=== PATIENT | male | born 1950 | race Caucasian/White ===

== ENCOUNTER 2020-07-24 08:13 | Day surgery (SDC) | payer OTHER, SELFPAY ==
[2020-07-19 11:12] VITALS: BMI 30.1
[2020-07-24 09:15] VITALS: BP 129/81; PULSE 78; RESP 16; TEMP 36.1; O2SAT 97
[2020-07-24] MEDS: Lactated Ringers 1,000 ML 50 ML IVCONT (09:17)
--- NOTE | 2020-07-24 09:40 | P.CONAN_ITS ---
[facility] Past Medical History Medical History Arthritis Back pain Cancer Elevated cholesterol Lab test negative for COVID-19 virus Sleep apnea Surgical History Surgical History H/O colonoscopy H/O radical prostatectomy History of partial knee replacement Hx of rotator cuff surgery Social History Social History Smoking Status: Never smoker Use of substances other than those prescribed or required for medical reasons: No Have you been hit, kicked, punched, or otherwise hurt by someone within the past year? If so, by whom?: No Advance Directives Information Provided: No Recently lost weight without trying: No Meds Allergies Allergy/AdvReac Type Severity Reaction Status Date / Time No Known Allergies Allergy Verified 07/19/20 11:17 Home Medications Medication Instructions Recorded Confirmed Type ascorbic acid (vitamin C) [Vitamin 500 mg PO DAILY 07/19/20 07/19/20 History C] cholecalciferol (vitamin D3) 20 mcg PO DAILY 07/19/20 07/19/20 History [Vitamin D3] rosuvastatin 5 mg PO DAILY 07/19/20 07/19/20 History Exam Exam Date and Time: July 24, 2020 0940 Height,Weight and Vital Signs: Height 5 ft 10 in Weight 95.254 kg Last Vital Signs Temp 96.9 F 07/24/20 09:15 Pulse 78 07/24/20 09:15 Resp 16 07/24/20 09:15 BP 129/81 07/24/20 09:15 Pulse Ox 97 07/24/20 09:15 Airway Mallampati Class: II TM Dist: >3cm Neck ROM: Full Loose/Missing/Broken Teeth: No Heart: rrr+[id number] Lungs: cta b/l Assessment and Plan Assessment Anesthesia Assessment: Anesthesia Plan Discussed and Chart Reviewed Final Anesthetic Review NPO: Yes ASA Class: II Final Preanesthetic Review: No Changes in Pt Med Stat, Meds/Allgs Chart Reviewed, Consent Obtained/Reviewed and Anes Risks/Benef Reviewed Patient Risk: Low Procedure Risk: Low Assessment/Block/Sedation in SS: Assess/Block/Sedation-SS Anesthetic Plan Anesthetic Plan: MAC: Disposition: Standard PACU
[2020-07-24 10:41] VITALS: BP 104/64; PULSE 83; RESP 12; TEMP 36.3; O2SAT 96
--- NOTE | 2020-07-24 10:42 | P.CONAN_ITS ---
[facility] Past Medical History Medical History Arthritis Back pain Cancer Elevated cholesterol Lab test negative for COVID-19 virus Sleep apnea Surgical History Surgical History H/O colonoscopy H/O radical prostatectomy History of partial knee replacement Hx of rotator cuff surgery Social History Social History Smoking Status: Never smoker Use of substances other than those prescribed or required for medical reasons: No Have you been hit, kicked, punched, or otherwise hurt by someone within the past year? If so, by whom?: No Advance Directives Information Provided: No Recently lost weight without trying: No Meds Allergies Allergy/AdvReac Type Severity Reaction Status Date / Time No Known Allergies Allergy Verified 07/19/20 11:17 Home Medications Medication Instructions Recorded Confirmed Type ascorbic acid (vitamin C) [Vitamin 500 mg PO DAILY 07/19/20 07/19/20 History C] cholecalciferol (vitamin D3) 20 mcg PO DAILY 07/19/20 07/19/20 History [Vitamin D3] rosuvastatin 5 mg PO DAILY 07/19/20 07/19/20 History Exam Exam Date and Time: July 24, 2020 1042 Height,Weight and Vital Signs: Height 5 ft 10 in Weight 95.254 kg Last Vital Signs Temp 96.9 F 07/24/20 09:15 Pulse 78 07/24/20 09:15 Resp 16 07/24/20 09:15 BP 129/81 07/24/20 09:15 Pulse Ox 97 07/24/20 09:15
--- NOTE | 2020-07-24 10:42 | PM.OP ---
Brief Operative Note Date of Service: 07/24/20 Pre-op diagnosis: Screening Post-op diagnosis: other (Diverticulosis) Procedure: Colonoscopy to cecum and TI Surgeon: Leon Lake Anesthesia: MAC Estimated blood loss (mL): 0 Pathology: none sent Condition: stable Disposition: PACU
[2020-07-24 10:56] VITALS: BP 106/63; PULSE 76; RESP 16; TEMP 36.3; O2SAT 95
--- NOTE | 2020-07-24 11:02 | OP_ITS ---
SURGEON: Leon Lake MD INDICATIONS: The patient presents for followup of colorectal cancer screening. Full consent has been obtained from him for this, including risks of bleeding and perforation. PREOPERATIVE DIAGNOSIS: Colorectal cancer screening. POSTOPERATIVE DIAGNOSIS: PROCEDURE PERFORMED: Colonoscopy to cecum and terminal ileum. ESTIMATED BLOOD LOSS: COMPLICATIONS: ANESTHESIA: Monitored anesthesia care. ASSISTANTS: SPECIMENS: POSTOPERATIVE DIAGNOSES: Colorectal cancer screening, sigmoid diverticulosis, and internal hemorrhoids. DESCRIPTION OF PROCEDURE: The patient was placed in the left lateral decubitus position. The digital rectal exam revealed no abnormalities. The Olympus video pediatric colonoscope was entered into the rectum and advanced easily to the cecum. Once in the cecum, I did identify normal-appearing cecal pouch with appendiceal orifice and a normal-appearing ileocecal valve. The terminal ileum was cannulated and appeared normal. The scope was withdrawn back in the colon. The entire cecum and ileocecal valve appeared normal. The scope was slowly withdrawn assessing all mucosal surfaces carefully. Preparation was excellent. I did not visualize any sign of polyps, colitis, nor angiodysplasia. There was a mild amount of sigmoid diverticulosis. In the rectum, scope was retroflexed visualizing minimal internal hemorrhoids, but no other pathology. The rectal mucosa appeared normal. The scope was straightened out and withdrawn from the patient. He tolerated the procedure well and was returned to the recovery area in stable condition. IMPRESSION: 1. Sigmoid diverticulosis. 2. Minimal internal hemorrhoids. PLAN: Given the patient's negative exam, negative family history, his age, and the fact that his last colonoscopy in 2009 only had a small tubular adenoma, I do not think he will need any further screening colonoscopies at this point. He will otherwise see me on a p.r.n. basis. MD ELEN Hammond/SARIAH / [phone]
--- NOTE | 2020-07-24 12:29 | HO.POSTANES ---
Post Anesthesia Evaluation Post Anesthesia Evaluation Vital Signs: Vital Signs Temp Pulse Resp BP Pulse Ox 07/24/20 10:56 97.3 F 76 16 106/63 95 07/24/20 10:41 97.3 F 83 12 104/64 96 07/24/20 09:15 96.9 F 78 16 129/81 97 Anesthesia: Monitored Mental Status: Awake Pain Control: Satisfactory Nausea/Vomiting: None Hydration: Adequate Anesthesia-Related Issues: No Anes. Related Issues
== END 2020-07-24 11:20 | disposition home or self-care (01) ==
PROVIDERS: Visit Provider Internal Medicine
PROC: 0DJD8ZZ Inspection of Lower Intestinal Tract, Via Natural or Artificial Opening Endoscopic (ICD-10-PCS; CPT 45378; principal; 2020-07-24 09:40)
DX: Z12.11 Encounter for screening for malignant neoplasm of colon (principal); Z86.010 Personal history of colon polyps; K57.30 Diverticulosis of large intestine without perforation or abscess without bleeding; K64.8 Other hemorrhoids; G47.33 Obstructive sleep apnea (adult) (pediatric); E78.00 Pure hypercholesterolemia, unspecified; Z79.899 Other long term (current) drug therapy; Z85.46 Personal history of malignant neoplasm of prostate; Z92.3 Personal history of irradiation; Z96.651 Presence of right artificial knee joint
CPT/HCPCS: 45378

== ENCOUNTER 2023-05-30 12:57 | Outpatient (REF) | payer MEDICARE, OTHER, SELFPAY ==
--- NOTE | ~2023-05-30 | XR_ITS ---
EXAMINATION: XR LUMBOSACRAL SPINE WITH OBLIQUES CLINICAL INFORMATION: Sacrococcygeal disorders COMPARISON: None available. TECHNIQUE: 4 views of the lumbar spine FINDINGS: 5 nonrib-bearing lumbar-type vertebral bodies. No acute visible fracture or dislocation. No overt dynamic instability on flexion-extension views. Mild multi level degenerative changes with osteophyte formation and facet arthropathy. Vertebral bodies and disc spaces are otherwise maintained. Posterior elements are intact. Paraspinal soft tissues are unremarkable. XR/XR lumbar spine 4V min IMPRESSION: 1. No acute visible fracture or dislocation. 2. Mild multi level degenerative changes.
== END 2023-05-30 12:58 | disposition home or self-care (01) ==
LOC: HO.HOSX 12:57
PROVIDERS: Visit Provider Physician Assistant
DX: M53.3 Sacrococcygeal disorders, not elsewhere classified (principal); M46.1 Sacroiliitis, not elsewhere classified; G89.29 Other chronic pain
CPT/HCPCS: 72110

== ENCOUNTER 2023-05-30 12:57 | Outpatient (AMB) | payer MEDICARE, OTHER, SELFPAY ==
--- NOTE | 2023-05-30 13:12 | A.SPINEOV_ITS ---
Intake Intake Visit Reasons: sacroiliitis Intake Note: Mr. Zaldivar is here today c/o SI joint pain. MRI done @ [place]/brought disc. 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 He is a 72-year-old gentleman who is very active and otherwise healthy, play softball competitively who has had 20 years of pain along the left SI joint region. He tells me he remembers when it started. He was working many years ago and had pulled something very heavy and felt a pop or pulling sensation in his low back. Ever since then he has had the pain almost every day. It steadily got worse over the years. He had block done at [facility] many many years ago, probably more than 10 years ago any gave him complete relief for a whole year. He more recently had a lateral branch block which may be helped him for an hour so. He was not clear if it was done cortisone or lidocaine etc.. He has no radicular pain. He has no centralized back pain. He is here today for surgical evaluation as this gentleman's pain has been getting steadily worse over the years and now it is affecting his ability to do simple things like walker do housework. He has no pain when he is sitting down or laying down at night. PMH: Very healthy, had a right knee surgery and shoulder surgery Social hx: Does not smoke Medications: Takes Crestor and Aleve to help with the pain Allergies: None Physical exam: Positive finger Fredy test, I was unable to reproduce the pain with ROXANNE testing or compression testing in the SI joint. Motor examination gait are normal. Imaging review: Lumbar MRI done at [place] looks excellent for a gentleman of his age with no signs of instability, spondylolisthesis, no fit significant facet arthropathy. No canal stenosis or nerve compression I can see. Impression: 72-year-old gentleman presents for evaluation of left-sided low back pain for 20+ years which started after he pulled something very heavy. He has no radicular pain. Many of the features of his symptoms suggest SI joint origin, but he has minimal physical exam findings to corroborate this. He has had a lot of success once or twice with an injection done at your office over 10 years ago, but he could not remember exactly what injection it was or where it was anatomically. He did more recently have a lateral branch block and it did not have much of an effect. I would like to find out where the original injection was done so I can have a better idea of where this was localized to. I will have my medical assistant secretary is contact our office for this information. Secondly, I will have him do standing flexion-extension studies to rule out occult instability in the lumbar spine. I will call the patient once I have the records in the standing x-rays to confirm a plan. Thank you for allowing us to care for your patient. The total time spent with this visit with this patient was 45 minutes reviewing history, physical exam, lumbar imaging review, and implementation of treatment plan or further diagnostic testing Jerry Wesley MD,PhD [facility] Orders: Orders XR lumbar spine 4V min Today G89.29 - Other chronic pain, M53.3 - Sacrococcygeal disorders, not elsewhere classified Coding Level of Care Code New Pt Level 4 (76678) Diagnoses Chronic SI joint pain M53.3; G89.29
== END 2023-05-30 13:36 | disposition home or self-care (01) ==
PROVIDERS: Referring Provider Student in an Organized Health Care Education/Training Program; Visit Provider Physician Assistant
DX: M53.3 Sacrococcygeal disorders, not elsewhere classified (principal); G89.29 Other chronic pain
CPT/HCPCS: 99204

== ENCOUNTER 2023-07-22 14:14 | Outpatient (AMB) | payer MEDICARE, OTHER, SELFPAY ==
--- NOTE | 2023-07-22 14:39 | A.SPINEOV_ITS ---
Intake Intake Visit Reasons: lower back pain Intake Note: Mr. Zaldivar is here today c/o low back pain. Drain Tiler Required: No Allergies No Known Allergies Allergy (Verified 07/19/20 11:17) Assessment & Plan Assessment & Plan (1) Chronic SI joint pain: Code(s): M53.3 - Sacrococcygeal disorders, not elsewhere classified; G89.29 - Other chronic pain Plan Mr Zaldivar is back in follow-up today to review his records from [facility] [facility] and his most recent left SI joint injection. Unfortunately did not get any relief from the SI joint block. He has been dealing with this left-sided low back pain for years. From what I can tell and from reviewing the records with him in my office today, he agrees that the injection done locally at the [facility] trigger-point is the only thing that has given him relief. This suggest that the problem is more of a tendinopathy than something deeper into the SI joint. It is unlikely that SI joint fusion would help him. We have excluded is lumbar spine is the source of his pain. I recommended he follow-up with [facility] again to get another trigger point injection. Total amount of time spent in this visit was 20 minutes in discussion of symptoms, results from injections and subsequent plan of care Jerry Wesley MD,PhD [facility] Coding Level of Care Code Est Pt Level 3 (91274) Diagnoses Chronic SI joint pain M53.3; G89.29
== END 2023-07-22 15:37 | disposition home or self-care (01) ==
PROVIDERS: Visit Provider Physician Assistant
DX: M53.3 Sacrococcygeal disorders, not elsewhere classified (principal); G89.29 Other chronic pain
CPT/HCPCS: 99213

== ENCOUNTER → 2023-07-22 14:14 | Outpatient (BNVA) | payer MEDICARE, OTHER, SELFPAY | PROVIDERS: Visit Provider Physician Assistant | DX: M53.3 Sacrococcygeal disorders, not elsewhere classified (principal); G89.29 Other chronic pain | CPT/HCPCS: 99212 ==

== ENCOUNTER 2025-04-29 11:50 | Outpatient (AMB) | payer MEDICARE, OTHER, SELFPAY ==
--- OUTSIDE RECORDS SUMMARY | 2025-04-29 11:52 | XMS_ITS ---
Author Name [facility] Organization Unknown Encounters Encounter Type Encounter Reason Primary Diagnosis Location Date Ambulatory [facility] [place] 07/16/2023
--- OUTSIDE RECORDS SUMMARY | 2025-04-29 11:52 | XMS_ITS | Patient Health Record ---
Author Organization [facility] Address [address] [place] [id number] Care Team Providers Care Sr. Merchandise Planner Name Role Phone OLE MACDONALD Primary Care Provider Leon Jean [phone] Reason For Referral No Information Medications Medication SIG (Take, Route, Fr equency, Duration) Notes Start Date End Date Status Vitamin C Active Rosuvastatin Calcium Active Immunizations Vaccine Route Administration Date Status Comme nts Influenza Unknown 06/09/2020 Refused Social History Tobacco Use: Social History Observation Description Date Details (start date - stop date) Never Smoker NA - NA Tobacco Use/Smoking Question Answer Notes Patient is a nonsmoker Alcohol Screen Question Answer Notes Did you have a drink contain ing alcohol in the past year? Yes How often did you have a dri nk containing alcohol in the past year? Monthly or less (1 point) How many drinks did you have on a typical day when you were drinking in the past year? 1 or 2 drinks (0 point) How often did you have 6 or more drinks on one occasion in the past year? Never (0 point) Points 1 Interpretation Negative Section Notes: Nonsmoker; Ocassional beer Problems Problem Type SNOMED Code ICD Code Onset Dates Problem Status W/U Status Risk Notes Problem 112833926 Encounter for screening for malignant neoplasm of colon (Z12.11) Active confirmed Problem 357760230 History of adenomatous polyp of colon (Z86.010) Active confirmed Problem 295846396764388 Preprocedural examination (Z01.818) Active confirmed Plan Of Treatment Future Test Test Name Order Date COLONOSCOPY 06/09/2020 Insurance Providers Payer Name Payer Address Payer Phone Subscriber Number Group Number Insured Name Patient Relationship to Insured Coverage Start Date Coverage End Date [place] [employer] [address] [place] [address] [id number] ALEJANDRA HERNANDEZ Self - patient is the insured Medical (General) History Medical History History ICD Code Hyperlipidemia Colonoscopy 03/2010 with removal of a sma ll tubular adenoma Denies SC,DM,CVA,Lung disease,renal dise ase Prostate cancer--surgery and XRT--may be starting hormones for a rising PSA Surgical History Surgery Date(Month/Year) Rotator cuff tear repair - right side 20 16 Partial right knee replacement 2017 Prostatectomy for cancer 2018
--- OUTSIDE RECORDS SUMMARY | 2025-04-29 11:53 | XMS_ITS | Clinical Summary ---
Author Organization [facility] Address [address] [place] [id number] Phone Care Team Providers Care Aerial Lineman Name Role Phone Self-Referred, Patient Unavailable Unavailab Antonio Mcbride MD Unavailable [phone] Libby Payne MD Unavailable [phone] Tyrone Cortez MD, PhD Unavailable [phone] Sebastien Melendez MD Primary Care Provider + Medications rosuvastatin (CRESTOR) 5 MG tablet Take 5 mg by mouth daily. Active Active Problems Problem Noted Date Diagnosed Date Prostate cancer 10/27/2019 Social History Tobacco Use Types Packs/Day Years Used Date Smoking Tobacco: Never Assessed Education Answer Date Recorded Are you interested in more education? Not on rashida e 01/03/2023 Are you concerned about learning? Not on file 01/03/2023 No 01/03/2023 No 01/03/2023 Digital Access Answer Date Recorded No 02/01/2023 No 02/01/2023 Reliable internet access at home? Not on file 02/01/2023 Device with a working camera? Not on file Sex and Gender Information Value Date Recorded Sex Assigned at Not on file Legal Sex Male 4:36 PM EDT Gender Identity Not on file Sexual Orientation Not on file Last Filed Vital Signs Vital Sign Reading Time Taken Comments Blood Pressure 145/81 10/28/2019 1:25 PM EST Pulse 83 10/28/2019 1:25 PM EST Temperature 36.6 C (97.9 F) 10/28/2019 1:25 PM EST Respiratory Rate 16 10/28/2019 1:25 PM EST Oxygen Saturation 95% 10/28/2019 1:25 PM EST Inhaled Oxygen Concentration - - Weight 94.4 kg (208 lb 1.8 oz) 10/28/2019 1:25 P M EST [facility] Height 180.6 cm (5' 11.1 ) 10/28/2019 1:25 PM ES T [facility] Body Mass Index 28.94 10/28/2019 1:25 PM EST Plan of Treatment Health Maintenance Due Date Last Done Comments LIPID PANEL 1949 DEPRESSION SCREENING 1961 SMOKING Hx and SMOKELESS TOB ACCO SCREENING 1962 HEPATITIS C SCREENING 1967 ZOSTER VACCINES (1 of 2) 1968 COLOGUARD 1994 COLONOSCOPY 1994 COLORECTAL CANCER SCREENING 1994 FIT TEST 1994 FOBT 1994 SIGMOIDOSCOPY 1994 VIRTUAL COLONOSCOPY 1994 PNEUMOCOCCAL VACCINES (50+ y ears) (2 of 2 - PPSV23) 08/02/2021 06/07/2021 COVID-19 VACCINE (2 - 2023-2 5 season) 2024 06/08/2021 RSV VACCINE (1 - 1-dose 75+ series) 2024 Adult Td,Tdap Booster 11/24/2025 11/25/2015 HEPATITIS A VACCINES Aged Out No long er eligible based on patient's age to complete this topic HIB VACCINES Aged Out No longer eligi ble based on patient's age to complete this topic MENINGOCOCCAL VACCINES (ACWY) Aged Out No longer eligible based on patient's age to complete this topic MENINGOCOCCAL VACCINES (B) Aged Out N o longer eligible based on patient's age to complete this topic Medical Devices Not on file Insurance MEDICARE PART A & B [employer] MEDICARE SUPPLEMENT MEDICARE PART A & B [employer] MED[employer]ARE SUPPLEMENT MEDICARE PART A & B [facility] MEDICARE SUPPLEMENT MEDICARE PART A & B [employer] MEDICARE SUPPLEMENT MEDICARE PART A & B [employer] MEDICARE SUPPLEMENT MEDICARE PART A & B [facility] MEDICARE SUPPLEMENT MEDICARE PART A & B [facility] EXTENSION MEDICARE SUPPLEMENT MEDICARE PART A & B Member Subscriber Plan / Payer (Ef fective 2017-Present) Name:Sukhi Zaldivar Member ID:[id number] Relation to Subscriber:Self Name:Sukhi Zaldivar Subscriber ID:[id number] Payer ID:[id number] Group ID:Not on file Type:Medicare Address: [employer] [address] [place] [id number] [place] [address] EXTENSION MEDICARE SUPPLEMENT MEDICARE PART A & B [facility] EXTENSION MEDICARE SUPPLEMENT Care Teams Aerial Lineman Relationship Specialty Start Date End Date Sebastien Melendez MD [address] [place] [address] PCP - General Internal Medicine 10/28/19 Self-Referred, Patient 12/11/17 Antonio Flowers MD [facility] [place] [address] [email or web address] Urology 09/30/19 Libby Payne MD [address] [place] [address] [email or web address] Medical Oncology 10/07/19 Tyrone Cortez MD, PhD [address] [facility] [place] [address] [email or web address] Radiation Oncology 10/07/19 Additional Source Comments The information contained in this document represents components of the legal health record. It is not the complete legal health record.[facility]
--- OUTSIDE RECORDS SUMMARY | 2025-04-29 11:53 | XMS_ITS | Clinical Summary ---
Author Organization [address] Address [address] [place] [address] Phone Care Team Providers Care Jacket Changer Name Role Phone Omari Navarrete MD Primary Care Provider Encounters Date Type Department Care Team Description 02/14/2025 Lab Requisition [facility] [address] [place] [address] Andrez Champion PA Malignant neoplasm of prostate (CMS/HCC V24, CMS/HCC V28) from Last 3 Months Social History Tobacco Use Types Packs/Day Years Used Date Smoking Tobacco: Never Assessed Sex and Gender Information Value Date Recorded Sex Assigned at Not on file Legal Sex Male 9:44 PM EST Gender Identity Not on file Sexual Orientation Not on file Plan of Treatment Health Maintenance Due Date Last Done Comments DTaP,Tdap,and Td Vaccines (1 - Tdap) 1968 Pneumococcal Vaccine: 50+ Ye ars (1 of 1 - PCV) 1999 Zoster Vaccines (1 of 2) 1999 Abdominal Aortic Aneurysm (A AA) Screen 08/10/2022 Cholesterol Screening (Lipid Panel) 08/10/2022 Colorectal Cancer Screening: Colonoscopy 08/10/2022 Falls Risk Assessment 08/10/2022 Hepatitis C Screening 08/10/2022 Medicare Annual Wellness Visit 08/10/2022 Social Influencers of Health Screening 08/10/2022 COVID-19 Vaccine ( - 2023-2 5 season) 2024 Depression Screening 09/08/2024 RSV Immunization Adult Patie nts (1 - 1-dose 75+ series) 2024 Influenza Vaccine (#1) 2025 HIB Vaccines Aged Out No longer eligi ble based on patient's age to complete this topic HPV Vaccines Aged Out No longer eligi ble based on patient's age to complete this topic Hepatitis A Vaccines Aged Out No long er eligible based on patient's age to complete this topic Hepatitis B Vaccines Aged Out No long er eligible based on patient's age to complete this topic IPV Vaccines Aged Out No longer eligi ble based on patient's age to complete this topic MMR Vaccines Aged Out No longer eligi ble based on patient's age to complete this topic Meningococcal ACWY Vaccine Aged Out N o longer eligible based on patient's age to complete this topic Meningococcal B Vaccine Aged Out No l onger eligible based on patient's age to complete this topic RSV Immunization Patients Un leanna 20 months Aged Out No longer eligible b ased on patient's age to complete this topic Varicella Vaccines Aged Out No longer eligible based on patient's age to complete this topic Procedures Procedure Name Priority Date/Time Associated Diagnosis Comments PROSTATE SPECIFIC ANTIGEN DIAGNOSTIC Routine 02/14/2025 8:47 AM EDT Malignant neoplasm of prostate ([facility] V24, [facility] V28) from Last 3 Months Results * Prostate specific antigen diagnostic (02/14/2025 8:47 AM EDT) PSA <0.06 0.00 - 4.00 ng/mL LAB CHEMISTRY METHOD 02/14/2025 2:29 PM EDT [facility] Blood Venous blood specimen / Unknown 02/14/2025 8:47 AM EDT 02/14/2025 1:28 PM EDT Narrative [facility] - 02/14/2025 2:29 PM EDT The Siemens Advia Centaur Chemiluminescent Immunoassay is used. Results obtained with different assay methods or kits cannot be used interchangeably. Results cannot be interpreted as absolute evidence of the presence or absence of malignant disease. Andrez BUTCHER LAB BLOOD ORDERABLES Final Resul t [facility] [address] [place] [address], [place] [phone] from Last 3 Months Insurance MEDICARE [facility] ATTN: FEE [place] [phone] Advance Directives Documents on File Type Date Recorded Patient Confectionery Maker Expl anation Health Care Decision (hx) 09/24/2017 AD ARRIAGA DIRECTIVE Health Care Decision (hx) 09/24/2017 AD ARRIAGA DIRECTIVE Health Care Decision (hx) 09/24/2017 AD ARRIAGA DIRECTIVE Health Care Decision (hx) 09/24/2017 AD ARRIAGA DIRECTIVE Health Care Decision (hx) 09/24/2017 AD ARRIAGA DIRECTIVE Health Care Decision (hx) 09/24/2017 AD ARRIAGA DIRECTIVE Care Teams Jacket Changer Relationship Specialty Start Date End Date Omari Navarrete MD [address] [place] [phone] PCP - General Internal Medicine 02/14/25
--- NOTE | 2025-04-29 11:59 | MHC.OFFVIS ---
Vital Signs 04/29/25 12:01 Height 6 ft Weight 208 lb BMI 28.2 BP 134/72 Blood Pressure Location Lt brachial Position Sitting Respiration 16 Pulse 70 Pulse Source Pulse Oximeter Pulse Oximetry (%) 97 Oxygen Delivery Method Room Air Intake Visit Reasons: INTRACEPT CONSULT Local Company Truck Driver Required: No Accompanied by: Daughter Allergies No Known Allergies Allergy (Verified 04/29/25 12:02) Medication List - Last Reconciled 04/29/25 by Mirian Stack LPN ascorbic acid (vitamin C) (Vitamin C) 500 mg PO DAILY cholecalciferol (vitamin D3) (Vitamin D3) 20 mcg PO DAILY ferrous sulfate 325 mg PO DAILY multivitamin 1 tab PO DAILY omeprazole 20 mg PO DAILY rosuvastatin 5 mg PO DAILY vibegron (Gemtesa) 75 mg PO DAILY HPI HPI INTRACEPT CONSULT: Details: History of Present Illness The patient is a 74-year-old male presenting with chronic left-sided low back pain. The pain has been persistent for 20+ years and is primarily located in the left lower back, with increased intensity upon movement, especially bending forward. Previous interventions included sacroiliac joint injections and trigger point injections, with only the latter providing some relief. The patient was scheduled for an Intracept procedure six weeks ago, which was canceled due to concerns about his cardiac condition, specifically a potentially blocked coronary artery. He has not experienced a heart attack, chest pain, or required stents, but a new primary care physician expressed concern about the blockage during routine tests. The patient is active, playing softball regularly, and prefers to manage pain without medication, using ibuprofen sparingly at night for sleep. Pain Description - Onset: Chronic, persisting for years - Location: Left-sided lower back, centralizing towards the middle - Quality: Increases with movement, particularly bending forward - Exacerbating factors: Movement, especially bending forward - Relieving factors: Minimal relief from trigger point injections - Interference: Affects daily activities, including sports like softball Physical Exam - Musculoskeletal: Pain exacerbated by movement, particularly bending forward - Appears afebrile. - Alert and oriented. - Mood and affect appropriate. - Follows and participates in conversation appropriately. - Respiratory effort is unlabored. - Able to transition from sit to stand unassisted. Pain Management - Affect: Pain impacts daily activities but patient maintains an active lifestyle - Analgesia: Uses ibuprofen sparingly at night for sleep - Adverse Effects: None reported from current pain management - Activities of Daily Living: Continues to play softball, indicating high activity level - Aberrant Drug Related Behaviors: None reported, patient avoids regular pain medication use PFSH Medical History (Updated 04/12/25 @ 11:44 by Mirian Stack LPN) Vertebrogenic low back pain Cancer Back pain Arthritis Lab test negative for COVID-19 virus Sleep apnea Elevated cholesterol Surgical History History of partial knee replacement Hx of rotator cuff surgery H/O radical prostatectomy H/O colonoscopy Physical Exam Vital Signs: Last Vital Signs Pulse 70 04/29/25 12:01 Resp 16 04/29/25 12:01 BP 134/72 04/29/25 12:01 Pulse Ox 97 04/29/25 12:01 Oxygen Delivery Method Room Air 04/29/25 12:01 BMI result Body Mass Index 28.2 Assessment & Plan Assessment & Plan (1) Vertebrogenic low back pain: Code(s): M54.51 - Vertebrogenic low back pain Category: Medical Plan Plan - Plan to obtain cardiac records from the patient's primary care provider to clarify cardiac concerns before proceeding with the Intracept procedure. - Consider scheduling the Intracept procedure at the hospital once cardiac clearance is obtained. - Continue current pain management with ibuprofen as needed, emphasizing non-pharmacological approaches. Patient was informed and verbally consented to the use of an ambient scribe for clinic note documentation during this visit. Discussion Notes I discussed with the patient the potential benefits and limitations of the Intracept procedure, noting that it may not be the ideal solution given the current evidence of vertebral endplate degeneration. We agreed to proceed with cautious optimism, understanding that the procedure is being considered due to a lack of other effective options. The patient was informed about the need to obtain cardiac clearance before scheduling the procedure, and he expressed understanding and agreement with the plan. Patient Instructions - Continue using ibuprofen at night as needed for pain relief. - Maintain current activity level, including playing softball, as tolerated. - Await further instructions regarding the scheduling of the Intracept procedure after cardiac clearance is obtained. Coding Level of Care Code New Pt Level 4 (27238) Diagnoses Vertebrogenic low back pain M54.51
[2025-04-29 12:01] VITALS: BP 134/72; PULSE 70; RESP 16; O2SAT 97; BMI 28.2
== END 2025-04-29 12:35 | disposition home or self-care (01) ==
LOC: HO.PMC 11:51
PROVIDERS: PCP Internal Medicine; Visit Provider Internal Medicine
DX: M54.51 Vertebrogenic low back pain (principal)
CPT/HCPCS: 99204

== ENCOUNTER → 2025-04-29 11:50 | Outpatient (BNVA) | payer MEDICARE, OTHER, SELFPAY | PROVIDERS: PCP Internal Medicine; Visit Provider Internal Medicine | DX: M54.51 Vertebrogenic low back pain (principal) | CPT/HCPCS: 99202 ==

== ENCOUNTER 2025-07-27 10:04 | Day surgery (SDC) | payer MEDICARE, OTHER, SELFPAY ==
--- OUTSIDE RECORDS SUMMARY | 2025-07-04 12:48 | XMS_ITS | Encounter Summary ---
Author Organization [facility] Address [address] [place] [address] Care Team Providers Care Councilor Name Role Phone Omari Navarrete MD Primary Care Provider Encounter Details Date Type Department Care Team (Late st Contact Info) Description 02/14/[address] [facility] - Main Lab [address] [place] [id number] Andrez Champion PA [address] [id number] Malignant neoplasm of prostate (CMS/HCC V24, CMS/HCC V28) Social History Tobacco Use Types Packs/Day Years Used Date Smoking Tobacco: Never Assessed Sex and Gender Information Value Date Recorded Sex Assigned at Not on file Legal Sex Male 9:44 PM EST Gender Identity Not on file Sexual Orientation Not on file documented as of this encounter Plan of Treatment Not on file documented as of this encounter Procedures Procedure Name Priority Date/Time Associated Diagnosis Comments PROSTATE SPECIFIC ANTIGEN DIAGNOSTIC Routine 02/14/2025 8:47 AM EDT Malignant neoplasm of prostate (CMS/HCC V24, CMS/HCC V28) documented in this encounter Results * Prostate specific antigen diagnostic (02/14/2025 8:47 AM EDT) PSA <0.06 0.00 - 4.00 ng/mL LAB CHEMISTRY METHOD 02/14/2025 2:29 PM EDT [facility] Blood Venous blood specimen / Unknown 02/14/2025 8:47 AM EDT 02/14/2025 1:28 PM EDT Narrative [facility] ([facility] - 02/14/2025 2:29 PM EDT The Siemens Advia Centaur Chemiluminescent Immunoassay is used. Results obtained with different assay methods or kits cannot be used interchangeably. Results cannot be interpreted as absolute evidence of the presence or absence of malignant disease. us Andrez BUTCHER LAB BLOOD ORDERABLES Final Resul t [facility] [address] [place] [address], documented in this encounter Visit Diagnoses Diagnosis Malignant neoplasm of prostate (CMS/HCC V24, CMS/HCC V28) Malignant neoplasm of prostate documented in this encounter Care Teams Councilor Relationship Specialty Start Date End Date Omari Navarrete MD [address] [place] [phone] PCP - General Internal Medicine 02/14/25 documented as of this encounter
--- OUTSIDE RECORDS SUMMARY | 2025-07-04 12:48 | XMS_ITS | Clinical Summary ---
Author Organization [facility] Address [address] [place] [address] Phone Care Team Providers Care Calcine Furnace Loader Name Role Phone Self-Referred, Patient Unavailable Unavailab Antonio Mcbride MD Unavailable [phone] Libby Payne MD Unavailable [phone] Tyrone Cortez MD, PhD Unavailable [phone] Sebastien Melendez MD Primary Care Provider + [...] DEPRESSION SCREENING 1961 SMOKING Hx and SMOKELESS TOBACCO SCREENING 1962 HEPATITIS C SCREENING 1967 ZOSTER VACCINES (1 of 2) 1968 COLOGUARD 1994 COLONOSCOPY 1994 COLORECTAL CANCER SCREENING 1994 FIT TEST 1994 FOBT 1994 SIGMOIDOSCOPY 1994 VIRTUAL COLONOSCOPY 1994 PNEUMOCOCCAL VACCINES (50+ years) (2 of 2 - PPSV23) 08/02/2021 06/07/2021 RSV VACCINE (1 - 1-dose 75+ series) 2024 INFLUENZA VACCINE (#1) 2025 , 07/31/2020 COVID-19 VACCINE (2 - 2024-2 6 season) 2025 06/08/2021 Adult Td,Tdap Booster 11/24/2025 11/25/2015 HEPATITIS A [...] file Insurance MEDICARE PART A & B [email or web address] EXTENSION MEDICARE SUPPLEMENT MEDICARE PART A & B [employer] [facility] EXTENSION MEDICARE SUPPLEMENT MEDICARE PART A & B [facility] MEDICARE SUPPLEMENT MEDICARE PART A & B [id number] [place] [address] EXTENSION MEDICARE SUPPLEMENT MEDICARE PART A & B [employer] [facility] EXTENSION MEDICARE SUPPLEMENT MEDICARE PART A & B Member Subscriber Plan / Payer ( fective 2017-Present) Name:Mckenna Zaldivarick Member ID:[id number] Relation to Subscriber:Self Name:MpwallySukhi Subscriber ID:[id number] Payer ID:[id number] Group ID:Not on file Type:Medicare Address: [facility] [employer] [facility] [address] [place] [phone] [facility] MEDICARE SUPPLEMENT MEDICARE PART A & B EXT[employer]ION MEDICARE SUPPLEMENT MEDICARE PART A & B EXTENSION MEDICARE SUPPLEMENT MEDICARE PART A & B [facility] EXTENSION MEDICARE SUPPLEMENT Care Teams Calcine Furnace Loader Relationship Specialty Start Date End Date Sebastien Melendez MD [facility] [place] [address] PCP - General Internal Medicine 10/28/19 Self-Referred, Patient 12/11/17 Antonio Flowers MD [facility], [address] [place] [address] [email or web address] Urology 09/30/19 Libby Payne MD [address] [place] [address] [email or web address] Medical Oncology 10/07/19 Tyrone Cortez MD, PhD [address] [place] [address] [email or web address] Radiation Oncology 10/07/19 Additional Source Comments The information contained in this document represents components of the legal health record. It is not the complete legal health record.[facility]
--- OUTSIDE RECORDS SUMMARY | 2025-07-04 12:48 | XMS_ITS | Patient Health Record ---
Author Organization [facility] Address [address] [place] [phone] Care Team Providers Care Car Supervisor Name Role Phone OLE MACDONALD Primary Care Provider Leon Jean [phone] Reason For Referral No Information Medications Medication [...] Problem Status W/U Status Risk Notes Problem Screening for malignant neoplasm of colon (833255028) Encounter for screening for malignant neoplasm of colon (Z12.11) Active confirmed Problem History of adenomatous polyp of colon (914870608) History of adenomatous polyp of colon (Z86.010) Active confirmed Problem Preprocedural examination (087945010939206) Preprocedural examination (Z01.818) Active confirmed Plan Of Treatment Future Test Test Name Order Date COLONOSCOPY 06/09/2020 Insurance Providers Payer Name Payer Address Payer Phone Subscriber Number Group Number Insured Name Patient Relationship to Insured Coverage Start Date Coverage End Date [facility] [employer] [address] [place] [address] [id number] ALEJANDRA HERNANDEZ Self - patient is the insured Medical (General) History Medical History History ICD Code Hyperlipidemia Colonoscopy 03/2010 with removal of a sma ll tubular adenoma Denies DE,DM,CVA,Lung disease,renal dise ase Prostate cancer--surgery and XRT--may be starting hormones for a rising PSA Surgical History Surgery Date(Month/Year) Rotator cuff tear repair - right side 20 16 Partial right knee replacement 2016 Prostatectomy for cancer 2018
--- OUTSIDE RECORDS SUMMARY | 2025-07-04 12:48 | XMS_ITS | Clinical Summary ---
Author Organization [address] Address [address] [place] [phone] Phone Care Team Providers Care School Child Care Attendant Name Role Phone Omari Navarrete MD Primary Care Provider Social History Tobacco Use Types Packs/Day Years Used Date Smoking Tobacco: Never Assessed Sex and Gender Information Value Date Recorded Sex Assigned at Not on file Legal Sex Male 9:44 PM EST Gender Identity Not on file Sexual Orientation Not on file Plan of Treatment Health Maintenance Due Date Last Done Comments Colorectal Cancer Screening: Colonoscopy 1950 Abdominal Aortic Aneurysm (AAA) Screen 08/10/2022 Cholesterol Screening (Lipid Panel) 08/10/2022 Falls Risk Assessment 08/10/2022 Hepatitis C Screening 08/10/2022 Medicare Annual Wellness Visit 08/10/2022 Social Influencers of Health Screening 08/10/2022 Depression Screening 09/08/2024 COVID-19 Vaccine ( season) 2025 06/12/2024, 06/12/2023, 12/30/2021, Additional history exists Influenza Vaccine (#1) 2025 , 06/12/2023, 06/10/2022, Additional history exists DTaP,Tdap,and Td Vaccines (2 - Td or Tdap) 11/24/2025 11/25/2015 Zoster Vaccines Completed 03/09/2022, 12/30/2021 RSV Immunization Adult Patients Completed 06/12/2023 Pneumococcal Vaccine: 50+ Years Completed 07/24/2023, 06/07/2021 HIB Vaccines Aged Out No longer eligi [...] to complete this topic RSV Immunization Patients Under 20 months Aged Out No longer eligible based on patient's age to complete this topic Varicella Vaccines Aged Out No longer eligible based on patient's age to complete this topic Insurance MEDICARE [facility] ATTN: [place] [address] Advance Directives Documents on File Type Date Recorded Patient Scleroscope Tester Expl anation Health Care Decision (hx) 09/24/2017 AD ARRIAGA DIRECTIVE Health Care Decision (hx) 09/24/2017 AD ARRIAGA DIRECTIVE Health Care Decision (hx) 09/24/2017 AD ARRIAGA DIRECTIVE Health Care Decision (hx) 09/24/2017 AD ARRIAGA DIRECTIVE Health Care Decision (hx) 09/24/2017 AD ARRIAGA DIRECTIVE Health Care Decision (hx) 09/24/2017 AD ARRIAGA DIRECTIVE Care Teams School Child Care Attendant Relationship Specialty Start Date End Date Omari Navarrete MD [address] [place] [phone] PCP - General Internal Medicine 02/14/25
--- OUTSIDE RECORDS SUMMARY | 2025-07-04 12:49 | XMS_ITS | Encounter Summary ---
Author Organization [facility] Address [address] [place] [address] Care Team Providers Care Survey Field Technician Name Role Phone Omari Navarrete MD Primary Care Provider Encounter Details Date Type Department Care Team (Late st Contact Info) Description 07/12/2024 Lab Requisition [facility] - Main Lab [address] [place] [address] Antonio Flowers MD [address] [phone] Malignant neoplasm of prostate (CMS/HCC V24, CMS/HCC [...] Diagnosis Comments PROSTATE SPECIFIC ANTIGEN DIAGNOSTIC Routine 07/12/2024 8:33 AM EST Malignant neoplasm of prostate (CMS/HCC) documented in this encounter Results * Prostate specific antigen diagnostic (07/12/2024 8:33 AM EST) PSA 0.52 0.00 - 4.00 ng/mL LAB CHEMISTRY METHOD 07/12/2024 11:45 AM EST [facility] Blood Venous blood specimen / Unknown 07/12/2024 8:33 AM EST 07/12/2024 10:37 AM EST Narrative [facility] ([facility] - 07/12/2024 11:45 AM EST The Siemens Advia Centaur Chemiluminescent Immunoassay is used. Results obtained with different assay methods or kits cannot be used interchangeably. Results cannot be interpreted as absolute evidence of the presence or absence of malignant disease. us Antonio Flowers MD LAB BLOOD ORDERABLES Final Resu lt [facility] [address] [place] [address], documented in this encounter Visit Diagnoses Diagnosis Malignant neoplasm of prostate (CMS/HCC V24, CMS/HCC V28) Malignant neoplasm of prostate documented in this encounter Care Teams Survey Field Technician Relationship Specialty Start Date End Date Omari Navarrete MD [address] [place] [phone] PCP - General Internal Medicine 02/14/25 documented as of this encounter
--- NOTE | 2025-07-05 12:30 | HO.ANESPROP2 ---
Documented by User: Kaylen Valerio NP 07/13/25 14:33 HPI - Anesthesia Eval Consult details Narrative: 74yo M for L4,L5 and S1 Basivertebral Nerve Ablation (Intracept RFA), 07/27/25 Telephone eval with patient 07/05/25: No recent illness No CP/SOB with gym 6 days weekly - does ~ 10 min cardio warm up followed by strength training Recent referral by PCP to cardiology for TAA and +coronary artery calcium score - Echo ok 2023 and Nuc stress nml 2022. Appt 09/2025 Cannot tolerate CPAP PMFSH Active Problems Active Problems: All Active Problems Vertebrogenic low back pain (Acute) Chronic SI joint pain (Acute) Past Medical History Medical History GERD (gastroesophageal reflux disease) Vertebrogenic low back pain Cancer Back pain Arthritis Lab test negative for COVID-19 virus Sleep apnea Elevated cholesterol Surgical History Surgical History (Updated 07/27/25 @ 10:54 by Kia Waddell RN) History of partial knee replacement Hx of rotator cuff surgery H/O radical prostatectomy H/O colonoscopy (07/24/20) Social History Social History Household Members: Spouse Housing: House Are you a primary career development counselor to a significant other at home: No Do you presently have visiting nurse or other home services: No Patient Tobacco Use Status: Never used Tobacco e-Cigarette/Vaping Use: Never Used Use of substances other than those prescribed or required for medical reasons: No Have you been hit, kicked, punched, or otherwise hurt by someone within the past year? If so, by whom?: No Are you DNR?: No Advance Directives: Yes (will bring dos) Advance Directives Information Provided: Yes Advance Directives on File: No Advance Directives Date on File: 07/27/25 Meds Allergies Allergy/AdvReac Type Severity Reaction Status Date / Time No Known Allergies Allergy Verified 07/11/25 12:28 Home Medications ?Medication ?Instructions ?Recorded ?Confirmed ?Last Taken ?Type ascorbic acid (vitamin C) 500 mg 500 mg PO DAILY 07/19/20 07/11/25 Unknown History tablet (Vitamin C) cholecalciferol (vitamin D3) 10 20 mcg PO DAILY 07/19/20 07/11/25 Unknown History mcg (400 unit) capsule (Vitamin D3) rosuvastatin 5 mg tablet 5 mg PO DAILY 07/19/20 07/11/25 Unknown History ferrous sulfate 325 mg (65 mg 325 mg PO 3XW 04/29/25 07/11/25 Unknown History iron) tablet,delayed release multivitamin 1 tab PO DAILY 04/29/25 07/11/25 07/06/25 History omeprazole 20 mg capsule,delayed 20 mg PO DAILY 04/29/25 07/11/25 07/27/25 History release vibegron 75 mg tablet (Gemtesa) 75 mg PO DAILY 04/29/25 07/11/25 Unknown History Exam Narrative Narrative: EKG 2022 NSR ECHO 2023 Summary The right ventricle is normal in size and function. The left ventricular size is at the upper limit of normal. Left ventricular wall thickness is normal. The LV systolic function is low normal . The left ventricular ejection fraction is 50-55 %. There are no regional wall motion abnormalities. Grade I, mild diastolic dysfunction with impaired LV relaxation, which may be normal for the patient's age. An accurate pulmonary artery pressure could not be obtained. Nuc Stress 2022 Summary No evidence of stress induced ischemia or prior myocardial infarction. Normal left ventricular size and function with no regional wall motion abnormalities. Assessment and Plan Assessment Anesthesia Assessment: Chart Reviewed Documented by User: Claudia Holt MD 07/27/25 14:44 PMFSH Past Medical History Medical History GERD (gastroesophageal reflux disease) Vertebrogenic low back pain Cancer Back pain Arthritis Lab test negative for COVID-19 virus Sleep apnea Elevated cholesterol Family History Family history of problems with anesthesia: No Surgical History Surgical History (Updated 07/27/25 @ 10:54 by Kia Waddell RN) History of partial knee replacement Hx of rotator cuff surgery H/O radical prostatectomy H/O colonoscopy (07/24/20) History of Problems with Anesthesia: No Social History Social History Household Members: Spouse Housing: House Are you a primary career development counselor to a significant other at home: No Do you presently have visiting nurse or other home services: No Patient Tobacco Use Status: Never used Tobacco e-Cigarette/Vaping Use: Never Used Use of substances other than those prescribed or required for medical reasons: No Have you been hit, kicked, punched, or otherwise hurt by someone within the past year? If so, by whom?: No Are you DNR?: No Advance Directives: Yes (will bring dos) Advance Directives Information Provided: Yes Advance Directives on File: No Advance Directives Date on File: 07/27/25 Meds Allergies Allergy/AdvReac Type Severity Reaction Status Date / Time No Known Allergies Allergy Verified 07/11/25 12:28 Home Medications ?Medication ?Instructions ?Recorded ?Confirmed ?Last Taken ?Type ascorbic acid (vitamin C) 500 mg 500 mg PO DAILY 07/19/20 07/11/25 Unknown History tablet (Vitamin C) cholecalciferol (vitamin D3) 10 20 mcg PO DAILY 07/19/20 07/11/25 Unknown History mcg (400 unit) capsule (Vitamin D3) rosuvastatin 5 mg tablet 5 mg PO DAILY 07/19/20 07/11/25 Unknown History ferrous sulfate 325 mg (65 mg 325 mg PO 3XW 04/29/25 07/11/25 Unknown History iron) tablet,delayed release multivitamin 1 tab PO DAILY 04/29/25 07/11/25 07/06/25 History omeprazole 20 mg capsule,delayed 20 mg PO DAILY 04/29/25 07/11/25 07/27/25 History release vibegron 75 mg tablet (Gemtesa) 75 mg PO DAILY 04/29/25 07/11/25 Unknown History Exam Airway Mallampati Class: II TM Dist: >3cm Neck ROM: Full Heart: rrr Lungs: cta Assessment and Plan Assessment Anesthesia Assessment: Anesthesia Plan Discussed Final Anesthetic Review Family History of Problems with Anesthesia: No History of Problems with Anesthesia: No NPO: Yes ASA Class: II Final Preanesthetic Review: No Changes in Pt Med Stat, Meds/Allgs Chart Reviewed, Consent Obtained/Reviewed and Anes Risks/Benef Reviewed Patient Risk: Low Procedure Risk: Low Anesthetic Plan Anesthetic Plan: GA and Agree w/ Assess. and Plan Disposition: Standard PACU
[2025-07-11 12:29] VITALS: BMI 27.5
--- NOTE | ~2025-07-27 | FL_ITS ---
EXAMINATION: FL GUIDANCE ONLY HISTORY: L4-S1 INTRACEPT COMPARISON: None available. TECHNIQUE: Fluoroscopy time: 56 seconds. Cumulative Dose: 17.00 mGy. DAP: 335.79 uGym2 Images: 6. FINDINGS: Fluoroscopic spot films of the lumbar spine demonstrate probes in the L4, L5, and S1 vertebral bodies. FL/FL guidance in OR IMPRESSION: Fluoroscopy during procedure. Please see procedure report for additional information. Electronically signed by: Leon Perez MD 07/27/2025 03:41 PM EST
[2025-07-27 10:54] VITALS: BMI 27.9
[2025-07-27 11:02] VITALS: BP 141/78; PULSE 76; RESP 16; TEMP 36.4; O2SAT 98
[2025-07-27] MEDS: Lactated Ringers 1,000 ML 100 ML IVCONT (11:15)
[2025-07-27 12:23] LABS: MRSA Nasal PCR NEGATIVE (Negative); SA Nasal PCR POSITIVE (Negative)
--- NOTE | 2025-07-27 12:26 | MHC.SHP ---
Pre-Procedural Eval Section A - 24 Hr Update-Section A only Date of Service: 07/27/25 The patient is an INPATIENT: No Changes since office visit: Yes Patient answered all questions The patient has been examined within 24 hours of the surgical procedure. The History & Physical has been completed within 30 days and I have reviewed it.: No Section B - Complete if H&P > 30 days Chief Complaint: Vertebrogenic low back pain Relevant Family History (Specify if Yes): No Relevant Social History: None Present Medications: see Short Stay Collaborative assessment Medical History: No relevant PMH History of Previous Operations: No relevant previous surgery Allergies: Allergies Allergy/AdvReac Type Severity Reaction Status Date / Time No Known Allergies Allergy Verified 07/11/25 12:28 Review of Systems Sugical H&P ROS: Negative: Constitution, Cardiovascular and Respiratory Exam Surgical H&P Exam: Normal: HEENT, Normal: Heart and Normal: Lungs Plan Diagnosis/Plan: Unchanged I have reviewed the history and physical and performed a pertinent physical examination on my patient. No changes have occurred unless specified. Time Spent With Patient Time: Total time managing care of this patient today ____ minutes.
[2025-07-27 14:19] VITALS: BP 150/63; PULSE 86; RESP 18; TEMP 36.4; O2SAT 99
[2025-07-27 14:24] VITALS: BP 126/72; PULSE 74; RESP 13; O2SAT 93
[2025-07-27 14:29] VITALS: BP 136/69; PULSE 71; RESP 12; O2SAT 95
[2025-07-27 14:34] VITALS: BP 131/71; PULSE 71; RESP 12; O2SAT 97
[2025-07-27 14:49] VITALS: BP 129/73; PULSE 64; RESP 12; TEMP 36.2; O2SAT 97
--- NOTE | 2025-07-27 15:52 | PM.OP ---
Brief Operative Note Date of Service: 07/27/25 Pre-op diagnosis: Vertebrogenic Low Back Pain Post-op diagnosis: same Procedure: Basivertebral Nerve Ablation (Intracept procedure) L4, L5, S1 Surgeon: Seth Coreas MD Anesthesia: MAC Was an Fretted Instrument Repairer used for this Procedure?: No Estimated blood loss (mL): 5 Pathology: none sent Condition: stable Disposition: PACU
--- NOTE | 2025-07-27 15:53 | P.OP_ITS ---
Operative Note Operative Note Date of Service: 07/27/25 Narrative: Preoperative diagnosis: Vertebrogenic low back pain Postoperative diagnosis: Same Procedure: Basivertebral nerve (BVN) ablation ? Intracept Procedure L4, L5, S1 Procedure Time Out: Patient ID confirmed, correct procedure to be performed, correct site and/or side for procedure as per marked location and correct medication(s), including antibiotic to be used for the procedure. Description of Procedure: After receiving anesthesia in the supine position, the patient was placed prone on the operating room table and all pressure points were appropriately padded. The back was sterilely prepped and draped. The C-arm was sterilely draped and moved into position to visualize the S1 vertebral body in the AP and lateral plane. The skin entry point was identified and infiltrated with 1% lidocaine using a 25-gauge 1-1/2 inch needle. A skin incision was made with 15 scalpel blade. The introducer cannula with bevel tip was then introduced through the skin, subcutaneous tissue and paraspinal muscle until bony contact was made. The position was checked in the AP and lateral plane. Using a mallet, the trocar was then advanced thru the pedicle to the posterior aspect of the vertebral body using a combination of AP and lateral views to ensure appropriate traversing of the pedicle and no breaching of the pedicle medially. Once the trocar was in the posterior aspect of the S1 vertebral body, the trocar was removed from the cannula and the curved cannula assembly with the nitinol J- stylet was inserted. The spin wheel was rotated counterclockwise permitting excursion of the J-stylet. The curved cannula assembly was then advanced using a mallet in 1-2 mm increments. The J-stylet was observed to traverse the vertebral body in the AP and lateral views. The J-stylet was removed and replaced with the straight stylet to reach the BVN target. Target was reached when the tip of the stylet was 50% anterior of the posterior wall of the S1 in the lateral view (midway between the superior and inferior endplates) and it crossed the midline of the S1 spinous process in the AP view. The stylet was then removed. The bipolar radiofrequency (RF) probe was connected to the generator and then inserted into the introducer cannula in its ablation position. The spin wheel was rotated clockwise to retract the PEEK sleeve to expose the proximal elec trode on the radiofrequency probe. The BVN was then ablated using [employer]?s standard RFG algorithm. While the ablation was occurring at S1, the C-arm was moved to visualize the target at the superolateral aspect of the L5 vertebral body. The superolateral left L5 pedicle was identified for access. The same process was utilized to place the tip of the cannular 50% anterior of the posterior wall of the L5 in the lateral view (midway between the superior and inferior endplates) and it crossed the midline of the L5 spinous process in the AP view. The stylet was then removed. The bipolar radiofrequency (RF) probe was removed from the previous vertebral body, the tip cleaned and was inserted into the introducer cannula in its ablation position. The spin wheel was rotated clockwise to retract the PEEK sleeve to expose the proximal electrode on the radiofrequency probe. The BVN was then ablated using [employer]?s targeted RFG algorithm. While the ablation was occurring at L5, the C-arm was moved to visualize the target at the superolateral aspect of the L4 vertebral body using the approach similar to the L5 vertebral body. The C-arm was rotated to square off the superior endplate at L4 and rotated approximately to the right to obtain an oblique view. The superolateral right L4 pedicle was identified, and the skin entry point identified. Same steps were followed as for L5. Target was reached when the tip of the stylet was 50% anterior of the posterior wall of the L4 in the lateral view (midway between the superior and inferior endplates) and it crossed the midline of the L4 spinous process in the AP view. The stylet was then removed. The bipolar radiofrequency (RF) probe was removed from the previous vertebral body, the tip cleaned and was inserted into the introducer cannula in its ablation position. The spin wheel was rotated clockwise to retract the PEEK sleeve to expose the proximal electrode on the radiofrequency probe. The BVN was then ablated using [employer]?s targeted RFG algorithm. With all ablations completed, the instruments were removed from the vertebral bodies. The surgical wounds were closed with 2-0 silk sutures and a sterile dressing was applied. The patient was returned to the supine position and the anesthesia reversed. The patient tolerated the procedure well and was brought to the recovery room. Patient was neurologically consistent with baseline. The patient was provided post-op and follow up instructions. Complications: None Estimate Blood Loss: 25 mL
== END 2025-07-27 15:28 | disposition home or self-care (01) ==
PROVIDERS: Registered Nurse Emergency; PCP Internal Medicine Rheumatology; Visit Provider Internal Medicine
PROC: (CPT 64628; principal; 2025-07-27 12:00)
DX: M54.51 Vertebrogenic low back pain (principal); M46.96 Unspecified inflammatory spondylopathy, lumbar region; E78.00 Pure hypercholesterolemia, unspecified; G47.33 Obstructive sleep apnea (adult) (pediatric); Z85.46 Personal history of malignant neoplasm of prostate; Z79.899 Other long term (current) drug therapy; Z90.79 Acquired absence of other genital organ(s); Z98.890 Other specified postprocedural states
CPT/HCPCS: 64628; 64629; 87640; 87641; C1889; J0690; J1100; J2003; J2371; J2405; J2704; J3010

== ENCOUNTER → 2025-07-27 10:04 | Outpatient (BNV) | payer MEDICARE, OTHER, SELFPAY | PROVIDERS: PCP Internal Medicine Rheumatology; Visit Provider Internal Medicine | DX: M54.51 Vertebrogenic low back pain (principal) | CPT/HCPCS: 64628; 64629 ==

== ENCOUNTER 2025-08-03 10:11 | Outpatient (AMB) | payer MEDICARE, OTHER, SELFPAY ==
--- NOTE | 2025-08-03 10:12 | MHC.OFFVIS ---
Vital Signs 08/03/25 10:14 Height 6 ft Weight 201 lb BMI 27.3 BP 98/57 L Blood Pressure Location Lt brachial Position Sitting Respiration 16 Pulse 107 H Pulse Source Pulse Oximeter Pulse Oximetry (%) 98 Oxygen Delivery Method Room Air Intake Visit Reasons: S/p L4, L5 and S1 BVN (Intracept) 07/27/25 Water Resource Consultant Required: No Accompanied by: Spouse Allergies No Known Allergies Allergy (Verified 08/03/25 10:15) Medication List - Last Reconciled 08/03/25 by Mirian Stack LPN ascorbic acid (vitamin C) (Vitamin C) 500 mg PO DAILY ferrous sulfate 325 mg PO 3XW multivitamin 1 tab PO DAILY omeprazole 20 mg PO DAILY rosuvastatin 40 mg PO DAILY vibegron (Gemtesa) 75 mg PO DAILY HPI HPI S/p L4, L5 and S1 BVN (Intracept) 07/27/25: Details: History of Present Illness The patient is a 74 year old individual presenting for a follow-up visit after a recent S1 basivertebral nerve ablation. The patient reports feeling great for the first two days post-procedure, but then the pain began to return, though it is not as severe as it was before the ablation. The patient experiences left-sided pain that localizes to the buttock with prolonged sitting or walking, which is the same as the pain experienced previously. The patient manages this pain with 600 mg of ibuprofen and by lying down on an incline, after which the pain slowly resolves. The patient has a history of prostate cancer and receives hormonal shots, which cause hot flashes. The patient works out at a gym doing upper body exercises on Mondays, Wednesdays, and Fridays and has started doing 50 squats per day. Pain Description - Location: The patient reports pain on the left side that goes into the buttock. - Quality: The pain is described as the same as before the procedure, but not as severe. - Exacerbating Factors: Pain is worsened by sitting for too long or walking too much. - Relieving Factors: Pain is relieved by taking 600 mg of ibuprofen and lying down on an incline. Physical Exam - Back: Incisions appear well healed. - Musculoskeletal: Tenderness to palpation over the left side of the back. Pain Management - Analgesia: The patient uses 600 mg of ibuprofen as needed for pain, which slowly resolves the symptoms. - Adverse Effects: The patient experiences hot flashes from hormonal shots for prostate cancer. - Activities of Daily Living: Pain interferes with prolonged sitting and walking. - Aberrant Drug Related Behaviors: No aberrant drug-related behaviors were noted. [facility] Medical History GERD (gastroesophageal reflux disease) Vertebrogenic low back pain Cancer Back pain Arthritis Lab test negative for COVID-19 virus Sleep apnea Elevated cholesterol Surgical History (Updated 07/27/25 @ 10:54 by Kia Waddell RN) History of partial knee replacement Hx of rotator cuff surgery H/O radical prostatectomy H/O colonoscopy (07/24/20) Social History Household Members: Spouse Housing: House Are you a primary adult care manager to a significant other at home: No Do you presently have visiting nurse or other home services: No Patient Tobacco Use Status: Never used Tobacco e-Cigarette/Vaping Use: Never Used Advance Directives Date on File: 07/27/25 Physical Exam Vital Signs: Last Vital Signs Pulse 107 H 08/03/25 10:14 Resp 16 08/03/25 10:14 BP 98/57 L 08/03/25 10:14 Pulse Ox 98 08/03/25 10:14 Oxygen Delivery Method Room Air 08/03/25 10:14 BMI result Body Mass Index 27.3 Assessment & Plan Assessment & Plan (1) Vertebrogenic low back pain: Code(s): M54.51 - Vertebrogenic low back pain Category: Medical Plan Plan Patient was informed and verbally consented to the use of an ambient scribe for clinic note documentation during this visit. 1. Chronic Low Back Pain, Status Post Basivertebral Nerve Ablation - The patient is in the early post-procedure period, and it is too soon to draw conclusions about the outcome. - Left-sided soreness is expected as two levels were treated from the left side and one from the right. - The patient is advised that healing will take four to six weeks. - The patient is encouraged to perform gentle stretching and exercises like squats, leg lifts, and leg curls, ensuring proper technique to avoid injury. - Caution was advised against overexertion to prevent delayed onset soreness. - A follow-up appointment will be scheduled in six weeks to assess the outcome of the procedure. 2. Prostate Cancer, History Of - The patient has a history of prostate cancer and is receiving hormonal shots, which are causing hot flashes. - This is noted; no changes to management discussed. Discussion Notes I explained to the patient that it is still early in the recovery period following the basivertebral nerve ablation and that we will get a better sense of the outcome at the four to six-week shona. I noted that the incisions look fine and that the increased sensitivity on the left side is expected, as more work was done on that side during the procedure. We discussed exercise, and I advised that gentle stretching and exercises like squats are appropriate. I emphasized the importance of using good technique, especially with back extensor exercises, to avoid injury and cautioned against overexertion. I have scheduled a follow-up appointment in six weeks to re-evaluate the patient's progress. Patient Instructions - Your incisions look fine, and you are cleared to shower. - It will take about four to six weeks for the area to fully heal from the procedure. - You can perform gentle stretching, squats, leg lifts, and leg curls. - Be careful with your technique during exercise to avoid injury, and do not push yourself too hard. - Continue to take ibuprofen for pain as you have been doing. - We have scheduled a follow-up appointment for you in six weeks to check on your progress. Coding Level of Care Code Est Pt Level 3 (63528) Diagnoses Vertebrogenic low back pain M54.51
[2025-08-03 10:14] VITALS: BP 98/57; PULSE 107; RESP 16; O2SAT 98; BMI 27.3
--- OUTSIDE RECORDS SUMMARY | 2025-08-03 11:55 | XMS_ITS | Encounter Summary ---
Author Organization [facility] Address [address] [place] [address] Care Team Providers Care Application Dba Name Role Phone Omari Navarrete MD Primary Care Provider Encounter Details Date Type Department Care Team (Late st Contact Info) Description 02/14/2025 Lab Requisition [facility] - Main Lab [address] [place] [id number] Andrez Champion PA [address] [id number] Malignant neoplasm of prostate (CMS/HCC V24, CMS/HCC [...] LAB CHEMISTRY METHOD 02/14/2025 2:29 PM EDT [facility] Blood Venous blood specimen / Unknown 02/14/2025 8:47 AM EDT 02/14/2025 1:28 PM EDT Narrative [facility] - 02/14/2025 2:29 PM EDT The Siemens Advia Centaur Chemiluminescent Immunoassay is used. Results obtained with different assay methods or kits cannot be used interchangeably. Results cannot be interpreted as absolute evidence of the presence or absence of malignant disease. us Andrez BUTCHER LAB BLOOD ORDERABLES Final Resul t [facility] [address] [place] [address], documented in this encounter Visit Diagnoses Diagnosis Malignant neoplasm of prostate (CMS/HCC V24, CMS/HCC V28) Malignant neoplasm of prostate documented in this encounter Care Teams Application Dba Relationship Specialty Start Date End Date Omari Navarrete MD [address] [place] [phone] PCP - General Internal Medicine 02/14/25 documented as of this encounter
--- OUTSIDE RECORDS SUMMARY | 2025-08-03 11:55 | XMS_ITS | Encounter Summary ---
Author Organization [facility] Address [address] [place] [address] Care Team Providers Care Music Minister Name Role Phone Omari Navarrete MD Primary Care Provider Encounter Details Date Type Department Care Team (Late st Contact Info) Description 07/12/2024 Lab Requisition [facility] - Main Lab [address] [place] [address] Antonio Flowers MD [address] [phone] Malignant neoplasm of prostate (CMS/HCC [...] LAB CHEMISTRY METHOD 07/12/2024 11:45 AM EST [facility] ([facility]) [facility] Blood Venous blood specimen / Unknown 07/12/2024 8:33 AM EST 07/12/2024 10:37 AM EST Narrative [facility] ([facility] - 07/12/2024 11:45 AM EST The Siemens Advia Centaur Chemiluminescent Immunoassay is used. Results obtained with different assay methods or kits cannot be used interchangeably. Results cannot be interpreted as absolute evidence of the presence or absence of malignant disease. us Antonio Flowers MD LAB BLOOD ORDERABLES Final Resu lt [facility] [address] [place] [address], documented in this encounter Visit Diagnoses Diagnosis Malignant neoplasm of prostate (CMS/HCC V24, CMS/HCC V28) Malignant neoplasm of prostate documented in this encounter Care Teams Music Minister Relationship Specialty Start Date End Date Omari Navarrete MD [address] [place] [phone] PCP - General Internal Medicine 02/14/25 documented as of this encounter
--- OUTSIDE RECORDS SUMMARY | 2025-08-03 11:55 | XMS_ITS | Clinical Summary ---
Author Organization [address] Address [address] [place] [phone] Phone Care Team Providers Care Grades 1 Thru 6 Home Teacher Name Role Phone Omari Navarrete MD Primary Care Provider [phone] Social History Tobacco Use Types Packs/Day Years [...] age to complete this topic Insurance MEDICARE [facility] ATTN: [place] [address] Advance Directives Documents on File Type Date Recorded Patient Employee Benefits Insurance Agent Expl anation Health Care Decision (hx) 09/24/2017 AD [employer] DIRECTIVE Health Care Decision (hx) 09/24/2017 AD [place]RIAGA DIRECTIVE Health Care Decision (hx) 09/24/2017 AD [place]RIAGA DIRECTIVE Health Care Decision (hx) 09/24/2017 AD ARRIAGA DIRECTIVE Health Care Decision (hx) 09/24/2017 AD ARRIAGA DIRECTIVE Health Care Decision (hx) 09/24/2017 AD ARRIAGA DIRECTIVE Care Teams Grades 1 Thru 6 Home Teacher Relationship Specialty Start Date End Date Omari Navarrete MD [address] [place] [phone] PCP - General Internal Medicine 02/14/25
--- OUTSIDE RECORDS SUMMARY | 2025-08-03 11:55 | XMS_ITS | Clinical Summary ---
Author Organization [facility] Address [address] [place] [phone] Phone Care Team Providers Care Security Solutions Architect Name Role Phone Self-Referred, Patient Unavailable Unavailab Antonio Mcbride MD Unavailable [phone] Libby Payne MD Unavailable Tyrone Cortez MD, PhD Unavailable [phone] Sebastien Melendez MD Primary Care Provider + [...] VACCINES (50+ years) (2 of 2 - PPSV23, PCV20, or PCV21) 08/02/2021 06/07/2021 RSV VACCINE (1 - 1-dose [...] file Insurance MEDICARE PART A & B [employer] MEDICARE SUPPLEMENT MEDICARE PART A & B [employer] MEDICARE SUPPLEMENT MEDICARE PART A & B [facility] MEDICARE SUPPLEMENT MEDICARE PART A & B [employer] MEDICARE SUPPLEMENT MEDICARE PART A & B [employer] [facility] EXTENSION MEDICARE SUPPLEMENT MEDICARE PART A & B [facility] MEDICARE SUPPLEMENT MEDICARE PART A & B [id number] [place] [address] [employer] MEDICARE SUPPLEMENT MEDICARE PART A & B [facility] [facility] EXTENSION MEDICARE SUPPLEMENT MEDICARE PART A & B [facility] [place] [phone] Care Teams Security Solutions Architect Relationship Specialty Start Date End Date Sebastien Melendez MD [facility] [place] [address] PCP - General Internal Medicine 10/28/19 Self-Referred, Patient 4/5/18 Antonio Flowers MD [facility], [address] [place] [address] [email or web address] Urology 09/30/19 Libby Payne MD [address] [place] [address] [email or web address] Medical Oncology 10/07/19 Tyrone Cortez MD, PhD [address] [place] [address] [email or web address] Radiation Oncology 10/07/19 Additional Source Comments The information contained in this document represents components of the legal health record. It is not the complete legal health record.[facility]
== END 2025-08-03 10:29 | disposition home or self-care (01) ==
LOC: HO.PMC 10:12
PROVIDERS: PCP Internal Medicine; Visit Provider Internal Medicine
DX: M54.51 Vertebrogenic low back pain (principal)
CPT/HCPCS: 99024

== ENCOUNTER → 2025-08-03 10:11 | Outpatient (BNVA) | payer MEDICARE, OTHER, SELFPAY | PROVIDERS: PCP Internal Medicine; Visit Provider Internal Medicine | DX: M54.51 Vertebrogenic low back pain (principal) | CPT/HCPCS: 99212 ==